=== PATIENT | male | born 1975 ===

== ENCOUNTER 2018-07-18 15:20 | Emergency (ER) | payer MEDICAID ==
[2018-07-18 15:50] VITALS: BMI 34.2
--- NOTE | 2018-07-18 16:00 | C.PDOC ---
History Of Present Illness Patient is a 43 year old male who presents to the ED in police custody for medical clearance after an incident in [facility] According to patient, he had not yet gone through the turnstile and was on his way to his methadone clinic in [place]. Patient states he is on Methadone 90mg, Clonazepam, and Seroquel daily and last took the medications yesterday. He reports he is withdrawing, but patient shows no sign of withdrawal. Patient is awaiting medical clearance for transport to the police station. Time Seen by Provider: 07/18/18 15:27 Chief Complaint (Nursing): Substance Abuse History Per: Patient, Other (Police) History/Exam Limitations: no limitations Onset/Duration Of Symptoms: Hrs Recent travel outside of the [place]: No Additional History Per: Patient Past Medical History Reviewed: Historical Data, Nursing Documentation, Vital Signs - Medical History PMH: No Chronic Diseases Surgical History: No Surg Hx Family History: States: No Known Family Hx Review Of Systems Constitutional: Negative for: Fever Cardiovascular: Negative for: Chest Pain Respiratory: Negative for: Shortness of Breath Physical Exam - Physical Exam Appears: Non-toxic, No Acute Distress Skin: Warm, Dry Head: Atraumatic, Normacephalic Eye(s): bilateral: Normal Inspection Oral Mucosa: Moist Neck: Normal ROM, Supple Chest: Symmetrical, No Deformity Cardiovascular: Rhythm Regular, No Murmur Respiratory: Normal Breath Sounds, No Rales, No Rhonchi, No Wheezing Gastrointestinal/Abdominal: Soft, No Tenderness Neurological/Psych: Oriented x3, Normal Speech, Normal Cognition ED Course And Treatment Progress Note: Patient showing no evidence of drug withdrawal and is cleared for police custody. Disposition - Disposition Disposition: RELEASED IN POLICE CUSTODY Disposition Time: 16:10 Condition: STABLE Forms: [facility] (Spanish), General Discharge Instructions - Clinical Impression Clinical Impression: Medical clearance for incarceration - Scribe Statement The provider has reviewed the documentation as recorded by the Rosalina Lopez All medical record entries made by the Scribe were at my direction and personally dictated by me. I have reviewed the chart and agree that the record accurately reflects my personal performance of the history, physical exam, medical decision making, and the department course for this patient. I have also personally directed, reviewed, and agree with the discharge instructions and disposition.
[2018-07-18] MEDS ORDERED: Methadone 40 mg Tab PO STA (16:05)
[2018-07-18] MEDS ORDERED: QUEtiapine 200 mg XR Tab PO STA (16:06)
[2018-07-18 16:13] VITALS: BP 115/76
[2018-07-18 16:45] VITALS: PULSE 77; RESP 18; TEMP 98.6; O2SAT 100
== END 2018-07-18 16:42 ==
LOC: C.ER 15:20
DX: Z02.89 Encounter for other administrative examinations (principal)